=== PATIENT | male | born 1945 | race Caucasian/White ===

== ENCOUNTER → 2023-11-17 10:51 | Outpatient (REF) | payer MEDICARE, OTHER, SELFPAY | LOC: HWRAD 10:51 | PROVIDERS: ATTENDING PHYSICIAN Internal Medicine Rheumatology; FAMILY PHYSICIAN Family Medicine | DX: M81.0 Age-related osteoporosis without current pathological fracture (principal); M85.9 Disorder of bone density and structure, unspecified; Z13.820 Encounter for screening for osteoporosis | CPT/HCPCS: 77080; 77081 ==